=== PATIENT | male | born 1970 | race African-American/Black ===

== ENCOUNTER → 2019-03-24 | Outpatient (CLI) | payer OTHER | LOC: RAD 09:00 | DX: R05 Cough (principal); R06.02 Shortness of breath ==

== ENCOUNTER → 2019-05-24 | Outpatient (CLI) | payer OTHER ==
--- NOTE | 2019-05-25 19:12 | SLE ---
[facility] [place] [address] POLYSOMNOGRAPHY STUDY Name: CARLIE PRESLEY Room #: REG [facility]#: [id number] Admission: 05/24/19 Attend Phys: Chris Philip MD Discharge: Date of : 68 Report #: [id number] THIS REPORT FOR: //name// CC: Chris Estevez MD DATE OF SERVICE: 05/24/2019 SLEEP STUDY ATTENDING PHYSICIAN: Dr. Jamie Estevez. The patient is a 48-year-old who weighs 221 pounds with a BMI of 34.6. The patient has severe subjective hypersomnia with an [place] score of 22. The patient had a recent home sleep study and was found to have severe JULIANNE at an AHI of 71 per hour. The patient returned for in-lab CPAP titration study. During the night study, the patient spent 442 minutes in bed and slept for 258 minutes with a low sleep efficiency of 58%. Sleep latency was 3.4 minutes with a REM latency of 195 minutes. Sleep architecture showed increased stage 1 and stage 2 sleep, absent slow wave and normal REM sleep. EKG monitoring revealed an average heart rate of 60 beats per minute. No sustained arrhythmias observed. No clinically significant PLM seen. The patient was started on CPAP at a pressure of 5 cm water and titrated up to 13 cm of water. At the final pressure, the patient slept for 106 minutes including 25 minutes of lateral REM sleep. The patient's AHI was reduced to 4.5 per hour and oxygen saturation remained above 90%. IMPRESSION: 1. Severe sleep apnea-hypopnea syndrome diagnosed by recent home sleep study. 2. No clinically significant periodic limb movements during sleep. 3. Reduced sleep efficiency resulting from sleep maintenance insomnia. RECOMMENDATIONS: 1. CPAP at 13 cm water completely eliminated the patient's sleep apnea and should be used on a nightly basis. 2. Follow up in 4-6 weeks to assess compliance with CPAP and to document clinical improvement. 3. Weight loss is strongly advised. 4. Avoid ETHANOL [employer] depressants. [facility] [address] [place] [address] POLYSOMNOGRAPHY STUDY Name: CHARLEE PRESLEYK Room #: REG [facility]#: [id number] Admission: 05/24/19 Attend Phys: Chris Philip MD Discharge: Date of : 68 Report #: [id number] 5. Cautioned regarding driving until symptoms of sleep apnea resolve with the use of CPAP. 6. The patient should be evaluated for any persistent insomnia after effective use of CPAP. <ELECTRONICALLY SIGNED> By: Chris Philip MD 05/25/19 [id number] Chris Philip MD /nt
== END ==
LOC: SLEEPLAB 10:20
DX: R06.02 Shortness of breath (principal); G47.33 Obstructive sleep apnea (adult) (pediatric)